=== PATIENT | male | born 1945 | race Caucasian/White ===

== ENCOUNTER 2020-01-07 12:18 | Inpatient (IN) ==
--- NOTE | 2020-01-07 13:18 | EKG Report ---
Test Performed on : 01/07/2020 12:29:33 PM Test Reason : syncope Blood Pressure : / mmHG Vent. Rate : 079 BPM Atrial Rate : 214 BPM P-R Int : 000 ms QRS Dur : 086 ms QT Int : 406 ms P-R-T Axes : 000 080 070 degrees QTc Int : 465 ms Atrial fibrillation. with a competing junctional pacemaker. with premature ventricular or aberrantly conducted complexes. Possible Anterior infarct , age undetermined Abnormal ECG When compared with ECG of 06-JUL-2017 15:29, Borderline criteria for Anterior infarct are now present Criteria for Inferior infarct are no longer present Nonspecific T wave abnormality no longer evident in Inferior leads Nonspecific T wave abnormality now evident in Anterior leads Unconfirmed Result
--- NOTE | 2020-01-07 13:24 | Diag Imaging Result Doc PS360 ---
EXAM: CHEST-PORTABLE 01/07/2020 HISTORY: syncope TECHNIQUE: AP portable at 1318 COMMENT: The inspiration is less optimal than on 04/09/2018. There is ill-defined opacity present in the left costal phrenic angle which was not present on the previous study. Otherwise considering differences in technique and inspiration there has been no significant change. IMPRESSION: Minimal atelectasis versus pneumonia left lower lobe. Electronically signed by Vern Mariscal 01/07/2020 1:22 PM
--- NOTE | 2020-01-07 13:28 | Diag Imaging Result Doc PS360 ---
EXAM: CT HEAD W/O CONTRAST HISTORY: sycope TECHNIQUE: CT head without contrast COMPARISON: None. FINDINGS: No parenchymal hemorrhage. No epidural or subdural hematoma. No subarachnoid hemorrhage. There is mild atrophy. Possible old right basal ganglia lacunar infarct. No mass identified on this noncontrasted exam. No hydrocephalus. No sinus opacification. IMPRESSION: No hemorrhage. Mild atrophy. This exam was performed using automated exposure control, adjustment of mA or kV according to patient size, and/or use of iterative reconstruction technique. Electronically signed by Bernabe Roa 01/07/2020 1:26 PM
[2020-01-07 14:12] LABS: BASO# 0.04 X1000 (0.0-0.2); BASO% 0.5 % (0.0-0.8); EOS# 0.03 X1000 (0.0-0.7); EOS% 0.4 % (0.0-10.0); HEMATOCRIT 50.6 % (42.0-52.0); HEMOGLOBIN 16.6 g/dL (14.0-18.0); IMM GRAN# 0.04 X1000 (0.0-0.04); IMM GRAN% 0.5 % (0.0-0.5); LYMPH# 0.66 X1000 (1.2-3.4); LYMPH% 7.9 % (20.5-51.1); MCH 29.9 PG (27-31); MCHC 32.8 g/dL (33-37); MCV 91.2 FL (81-99); MONO# 0.24 X1000 (0.11-0.59); MONO% 2.9 % (1.7-9.3); MPV 11.2 FL (7.4-10.4); NEUT# 7.38 X1000 (1.4-6.5); NEUT% 87.8 % (42.2-75.2); PLT 168 X1000 (130-400); RBC 5.55 XMIL (4.7-6.1); RDW 13.2 % (11.5-14.5); WBC 8.39 X1000 (4.8-10.8)
[2020-01-07 14:22] LABS: INR 1.48; PROTIME 18.2 Seconds (11.0-16.0)
[2020-01-07 14:43] LABS: LYMPHS 7 % (21-51); MONO 2 % (1-9); SEGS 91 % (42-75)
[2020-01-07 14:45] LABS: ALB/GLOB RATIO 1.1; CALCIUM 9.3 mg/dL (8.8-10.2); CREATININE 1.7 mg/dL (0.7-1.2); POTASSIUM 4.6 mmol/L (3.5-5.1); TOTAL BILIRUBIN 0.87 mg/dL (0.20-1.00); TOTAL PROTEIN 7.8 g/dL (6.3-8.3)
[2020-01-07] MEDS ORDERED: NS 1,000 ML IV ONE (15:50)
--- NOTE | 2020-01-07 15:52 | PROVIDER DOCUMENTATION ---
This chart was entered by Cyndi Lozada Scribe, acting as scribe for Nita Hargrove CRNP. HPI-Syncope/Dizziness - General Chief Complaint: Syncope Stated Complaint: Fall Time Seen by Provider: 01/07/20 13:36 Source: patient, EMS (first response) Allergies/Adverse Reactions: Patient Allergies Allergy/AdvReac Type Severity Reaction Status Date / Time No Known Allergies Allergy Verified 07/07/17 06:11 Home Medications: Home Medication List Medication Instructions Recorded Confirmed Last Taken Type Tamsulosin [Flomax] 0.4 mg PO DAILY 07/12/14 07/07/17 07/06/17 09:00 History Omeprazole [Prilosec] 40 mg PO DAILY 02/19/15 07/07/17 07/06/17 09:00 History Carvedilol [Coreg] 25 mg PO BID 03/21/17 07/07/17 07/07/17 05:10 History Digoxin [Digitek] 125 mcg PO DAILY 03/21/17 07/07/17 07/07/17 05:10 History Furosemide [Lasix] 40 mg PO DAILY 03/21/17 07/07/17 07/06/17 09:00 History Paroxetine [Paxil] 10 mg PO DAILY 03/21/17 07/07/17 07/06/17 09:00 History Sacubitril/Valsartan [Entresto 24 1 each PO BID 03/21/17 07/07/17 07/06/17 21:00 History mg-26 mg Tablet] - History of Present Illness-Syncope/Dizzy Nature of Presenting Problem: 74 yom presents to the ed with c/o 3 weeks of intermittent syncope and dizziness. he reports he has been dieting and saw pmd and was advised to come to ed Prior Episodes: reports: recent history Onset/Duration: reports: other (3 weeks) Timing: reports: intermittent Position/Activity at time of episode: reports: sitting Symptoms prior to episode: reports: lightheaded. denies: nausea/vomiting, chest pain, abdominal pain Context: reports: lost consciousness Loss of Consciousness: brief (seconds) Location of injury. (If syncope resulted in an injury.): reports: none Current Symptoms: reports: dizzy Recently Seen Here or By Another Healthcare Provider: No - Dizziness Severity in ED: reports: mild Dizziness Related Current/Associated Symptoms: reports: dizzy, syncope Any recent trauma/injury?: reports: none Modifying Factors: improves with: changing position Patient usually:: reports: walks without assistance Review of Systems - Adult - REVIEW OF SYSTEMS - ADULT Constitutional: denies: chills, fever Eyes: reports: no symptoms reported Ears, Nose, Mouth & Throat: reports: no symptoms reported Cardiovascular: denies: chest pain, palpitations Respiratory: reports: no symptoms reported Gastrointestinal: denies: abdominal pain, diarrhea, nausea, vomiting Genitourinary: reports: no symptoms reported Musculoskeletal: denies: back pain, muscle weakness, neck pain Integumentary: reports: no symptoms reported Neurological: reports: see HPI, dizziness/vertigo, syncope. denies: ataxia, headache/migraines, slurred speech Psychiatric: reports: no symptoms reported Endocrine: reports: no symptoms reported Hematologic/Lymphatic: reports: no symptoms reported Allergic/Immunologic: reports: no symptoms reported All Other Systems: Reviewed and Negative Past History - Adult - PAST MEDICAL HISTORY-ADULT Review of Records: reports: Old Records Reviewed, Nursing Assessment Review, Medications Reviewed, Social history reviewed & non-contributory. 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) - IMMUNIZATION STATUS Childhood Immunizations: See Nurse Assessment Flu Vaccine: See Nurse Assessment - FAMILY HISTORY Family History: reviewed, not pertinent - SOCIAL HISTORY Smoking: denies Substance Use: denies Living Situation: family Physical Exam-General - CONSTITUTIONAL General Appearance: appears well, alert, no apparent distress (nontoxic in appearance), obese - EYES Eyes: PERRL/EOMI, pink conjunctivae - HEAD, EARS, NOSE, MOUTH & THROAT HENMT: moist mucous membranes - NECK Neck: non-tender, full range of motion, supple, normal inspection - RESPIRATORY Respiratory: chest non-tender, lungs clear, normal breath sounds - CARDIOVASCULAR Cardiovascular: normal peripheral pulses, regular rate, rhythm - CHEST (BREASTS) Chest/Breast: deferred - GASTROINTESTINAL (ABDOMEN) Abdominal Exam: normal bowel sounds, non tender, soft - GENITOURINARY Male Genitalia: deferred Rectal Exam: deferred Hemoccult Exam: deferred - MUSCULOSKELETAL Back Exam: no CVA tenderness, no vertebral tenderness Extremity: normal range of motion, non-tender, normal gait, normal inspection - SKIN Integumentary: normal color, normal turgor, warm/dry - NEUROLOGIC Neurologic: grossly normal - PSYCHIATRIC Psych/Mental Status: normal mood/affect, normal thought content, normal thought process, oriented x 3 Progress - PLAN OF CARE/RESULTS Progress/Plan/Lab Results: Vital Signs - 8 hr 01/07/20 12:34 01/07/20 15:39 Temperature 97.6 F Pulse Rate 73 Pulse Rate [Sitting] 106 H Pulse Rate [Standing] 91 H Pulse Rate [Supine] 85 Respiratory Rate 20 Blood Pressure 126/81 Blood Pressure [Sitting] 90/57 Blood Pressure [Standing] 110/72 Blood Pressure [Supine] 123/85 O2 Sat by Pulse Oximetry 95 Laboratory Results - last 24 hr 01/07/20 01/07/20 01/07/20 13:55 13:55 13:55 WBC 8.39 RBC 5.55 Hgb 16.6 Hct 50.6 MCV 91.2 MCH 29.9 MCHC 32.8 L RDW Std Deviation 13.2 Plt Count 168 MPV 11.2 H Immature Gran % (Auto) 0.5 Neut % (Auto) 87.8 H Lymph % (Auto) 7.9 L [place] % (Auto) 2.9 Eos % (Auto) 0.4 Baso % (Auto) 0.5 Immature Gran # (Auto) 0.04 Neut # (Auto) 7.38 H Lymph # (Auto) 0.66 L [place] # (Auto) 0.24 Eos # (Auto) 0.03 Baso # (Auto) 0.04 Segmented Neutrophils 91 H Lymphocytes 7 L Monocytes 2 PT INR Sodium 135 L Potassium 4.6 Chloride 98 Carbon Dioxide 22 L Anion Gap 15 BUN 26 H Creatinine 1.7 H Estimated GFR/1.73 m2 39 BUN/Creatinine Ratio 15 Glucose 112 H Calculated Osmolality 276 Calcium 9.3 Total Bilirubin 0.87 AST 37 H ALT 30 Alkaline Phosphatase 124 H Creatine Kinase 78 Troponin T High Sens 8 Total Protein 7.8 Albumin 4.0 Globulin 3.8 Albumin/Globulin Ratio 1.1 01/07/20 13:55 WBC RBC Hgb Hct MCV MCH MCHC RDW Std Deviation Plt Count MPV Immature Gran % (Auto) Neut % (Auto) Lymph % (Auto) [place] % (Auto) Eos % (Auto) Baso % (Auto) Immature Gran # (Auto) Neut # (Auto) Lymph # (Auto) [place] # (Auto) Eos # (Auto) Baso # (Auto) Segmented Neutrophils Lymphocytes Monocytes PT 18.2 H INR 1.48 Sodium Potassium Chloride Carbon Dioxide Anion Gap BUN Creatinine Estimated GFR/1.73 m2 BUN/Creatinine Ratio Glucose Calculated Osmolality Calcium Total Bilirubin AST ALT Alkaline Phosphatase Creatine Kinase Troponin T High Sens Total Protein Albumin Globulin Albumin/Globulin Ratio Orders Category Date Time Status Nursing- Obtain EKG ONCE Care 01/07/20 12:53 Active CHEST-PORTABLE [RAD] Stat Exams 01/07/20 12:[address] HEAD W/O CONTRAST [CT] Stat Exams 01/07/20 12:47 Completed CBC WITH DIFF [HEME] Stat Lab 01/07/20 13:55 Completed CK PROFILE [SP CHEM] Stat Lab 01/07/20 13:55 Completed COMPREHENSIVE METABOLIC PANEL [CHEM] Stat Lab 01/07/20 13:55 Completed PROTIME WITH INR [COAG] Stat Lab 01/07/20 13:55 Completed TROPONIN T HIGH SENSITIVITY Stat Lab 01/07/20 13:55 Completed EKG [EKG] Stat Ther 01/07/20 12:47 Draft Result Diagrams: 01/07/20 13:55 01/07/20 13:55 - REASSESSMENT Reassessment #1 Time Reassessed: 15:42 Status: improving (pt is resting in the bed in no distress) - EKG 1 Time of EKG reading by physician:: 12:29 EKG Read and Signed by:: Tawanda Hammond EKG Interpretation (*Must complete 3 of following elements*): Abnormal Rate: 79 Rhythm: afib w/competing junctional pacemaker w/ pvc or aberrantly conducted comple [place]: normal QRS: normal CA Interval: normal ST Wave: normal Comments: possible anterior infarct, age undetrmined - XRAY 1 XRAY: Bilateral XRAY Study: Chest Impression: See EMR Report (COMMENT: The inspiration is less optimal than on 04/09/2018. There is ill-defined opacity present in the left costal phrenic angle which was not present on the previous study. Otherwise considering differences in technique and inspiration there has been no significant change. IMPRESSION: Minimal atelectasis versus pneumonia left lower lobe. Electronically signed by Vern Mariscal 01/07/2020 1:22 PM) - CT/MRI 1 CT Study: Head Impression: See EMR Report (FINDINGS: No parenchymal hemorrhage. No epidural or subdural hematoma. No subarachnoid hemorrhage. There is mild atrophy. Possible old right basal ganglia lacunar infarct. No mass identified on this noncontrasted exam. No hydrocephalus. No sinus opacification. IMPRESSION: No hemorrhage. Mild atrophy. This exam was performed using automated exposure control, adjustment of mA or kV according to patient size, and/or use of it erative reconstruction technique. Electronically signed by Bernabe Roa 01/07/2020 1:26 PM) - CONSULTS/PCP/HOSPITALIST Notification #1 *Consult/PCP/Hospitalist*: Dr. Patel Time Discussed: 15:16 Consult Disposition: Will see in ED #2 Consult: Dr. Patel Time Discussed: 15:49 Consult Disposition: Admit Departure - Departure Date of Disposition Decision: 01/07/20 Time of Disposition Decision: 15:50 DIAGNOSIS: Orthostatic hypotension Syncopal episodes Qualifiers: Syncope type: unspecified Qualified Code(s): R55 - Syncope and collapse Disposition: ADMITTED INPATIENT 09 Certified Medical Emergency: Emergent Condition: Stable Referrals and Follow-Ups: Melissa Patel MD [Primary Care Provider] - - Critical Care Note This patient required my direct & personal management of CC.: No Attestation - Physician/ DEE Attestation Patient care was provided by Advanced Practice Provider:: Yes Advanced Practice Provider:: Nita Hargrove Advanced Practice Provider documentation review:: The Mid-level provider documentation, treatment plan and medical decision making was reviewed by the ysician who agrees with all treatment and medical decision making by the MLP. The physician spent face to face time with patient:: Yes Advanced Practice Provider documentation review:: Supervising physician onsite and consulted in the evaluation and care of this patient. The physician did have a face to face encounter with the patient. This chart was documented by the indicated scribe, (Cyndi Lozada Scribe) and accurately reflects the services I performed and decisions made by , Nita Hargrove CRNP, as attested by the provider's signature.
--- NOTE | 2020-01-07 16:33 | HISTORY AND PHYSICAL ---
CHIEF COMPLAINT: "I passed out." HISTORY OF PRESENT ILLNESS: Mr. 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 This morning, he stood up and felt dizzy and walked to the front door to open the door. He passed out. He lost consciousness. He was unconscious for less than one minute. The family did not note any seizure activity such as tonic clonic movements or loss of bowel and bladder control. Prior to the event, he did not have any palpitations or feel that his heart was racing away with him. He was orthostatic in the ER. He denied any nausea, vomiting, or diarrhea. PAST MEDICAL HISTORY: As above. PAST SURGICAL HISTORY: Cholecystectomy. ALLERGIES: No known drug allergies. FAMILY HISTORY: Noncontributory. SOCIAL HISTORY: He lives with his spouse. He denies the use of tobacco, alcohol, or illicit drugs. MEDICATIONS: Xarelto 15 mg daily, digoxin 125 mcg daily, omeprazole 40 mg daily, Paxil 20 mg daily, Entresto one p.o. b.i.d., Lasix 40 mg daily, Flomax 0.4 mg daily. REVIEW OF SYSTEMS: Constitutional: He denies any recent weight gain or weight loss. HEENT: He wears glasses. He is hard of hearing. CV: No chest pain or palpitations or anginal equivalents. Pulmonary: No shortness of breath, PND, or orthopnea. GI: No reflux, dysphagia, melena, hematochezia, change in bowel habits or rectal bleeding. Endocrine: No polyuria. No polydipsia. No cold or heat intolerance. Skin: No easy bruisability. : No leakage of urine with coughing or laughing. Neurologic: No migraines or seizures. PHYSICAL EXAMINATION: GENERAL: This is an elderly, frail, 74-year-old gentleman, no apparent distress. VITAL SIGNS: He is afebrile. Blood pressure 123/80 lying down, 110/70 sitting up and 90/60 standing. HEENT: Fundi with arteriolar wall thickening. Pupils equal, round, reactive to light, extraocular eye movements intact. TMs without bullae. NECK: Supple. No masses, JVD or bruits. CARDIOVASCULAR: Irregularly irregular. LUNGS: Clear. ABDOMEN: Soft. Nontender with active bowel sounds. EXTREMITIES: Trace ankle edema. AND RECTAL: Exam is deferred. NEUROLOGIC: Nonfocal. ASSESSMENT AND PLAN: 1. Syncopal episode. I suspect that his syncopal episode is due to the orthostatic hypotension. I will hold his Toprol and Lasix and cautiously give him 1 L of normal saline over [address] him on telemetry. He has paroxysmal atrial fibrillation. His EKG showed atrial fibrillation without rapid ventricular rate. Certainly he could have had atrial fibrillation with rapid ventricular response. I will check a Cortrosyn stimulation test in the morning as he has no apparent reason other than taking Lasix for his orthostasis. 2. Chronic congestive heart failure secondary to systolic dysfunction. Clinically, he seems volume depleted. His creatinine has jumped from 1.4 to 1.7. We will cautiously give him 1 L of normal saline over 10 hours and Hep-Lock. I will hold his Lasix. 3. Factor V Leiden deficiency. We will continue Xarelto 20 mg daily. Given his comorbid conditions and clinical presentation, I believe that admission to the hospital for further evaluation is indicated. I anticipate that he will be in the hospital for at least one midnight and I will therefore place him in outpatient status with observation services. Xarelto 20 mg daily will meet the requirement for deep venous thrombosis prophylaxis. cc: Jaida Patel MD
[2020-01-07] MEDS ORDERED: SODIUM CHLORIDE 0.9% INJ PRN (17:49)
[2020-01-07] MEDS ORDERED: CORTROSYN IV ONE (17:49)
[2020-01-07] MEDS ORDERED: PHENERGAN IV PRN (17:49)
[2020-01-07] MEDS: ENTRESTO 24 MG-26 MG TABLET PO SCH (20:56)
[2020-01-07] MEDS: TYLENOL PO PRN (23:46)
[2020-01-08] MEDS: PRILOSEC PO SCH (06:03)
[2020-01-08] MEDS ORDERED: CORTROSYN IV ONE ×2 (06:15→07:15)
[2020-01-08 06:22] LABS: CALCIUM 9.1 mg/dL (8.8-10.2); CREATININE 1.5 mg/dL (0.7-1.2); POTASSIUM 4.2 mmol/L (3.5-5.1)
[2020-01-08] MEDS: LANOXIN PO SCH (08:10)
[2020-01-08] MEDS: FLOMAX PO SCH (08:10)
[2020-01-08] MEDS: PAXIL PO SCH (08:10)
[2020-01-08] MEDS: ENTRESTO 24 MG-26 MG TABLET PO SCH ×2 (08:10→20:15)
[2020-01-08] MEDS: XARELTO PO SCH (08:11)
--- NOTE | 2020-01-08 08:13 | EKG Report ---
Test Performed on : 01/08/2020 06:24:06 AM Test Reason : atrial fib Blood Pressure : / mmHG Vent. Rate : 080 BPM Atrial Rate : 076 BPM P-R Int : 000 ms QRS Dur : 086 ms QT Int : 376 ms P-R-T Axes : 000 -25 -33 degrees QTc Int : 433 ms Atrial fibrillation. Inferior infarct , age undetermined Possible Anterior infarct (cited on or before 06-JUL-2017) Abnormal ECG When compared with ECG of 07-JAN-2020 12:29, (Unconfirmed) QRS axis shifted left Inferior infarct is now present ST now depressed in Inferior leads Nonspecific T wave abnormality now evident in Inferior leads Confirmed by Manuel CASTRO, Emmanuel Kaiser ([id number]) on 01/08/2020 9:25:31 AM
[2020-01-08] MEDS ORDERED: NS 500 ML IV SCH (08:30)
--- NOTE | 2020-01-08 12:33 | ECHO REPORT ---
ORDER DATE: 01/07/2020 INDICATION: Syncope. FINDINGS: 1. The right atrium appears enlarged. Linear echodensity consistent with device leads is noted in the right heart chambers. 2. Fneg-fx-bzykydis tricuspid regurgitation. RV systolic pressure of 41. 3. Normal RV size and systolic function. 4. Mild pulmonic insufficiency. 5. Severe left atrial enlargement with a volume index of 66. 6. No mitral valve prolapse. Mild mitral regurgitation. 7. Normal LV size, end-diastolic dimension of 4.9 cm. Mild left ventricular hypertrophy with a posterior and interventricular septal wall thickness of 1.3 cm each. Normal LV systolic function. Estimated EF of 55% to 60% with normal wall motion. 8. The aortic valve opens well. It is trileaflet. Mild insufficiency. No stenosis. 9. The aorta appears normal on visualized segments. 10. No pericardial effusion seen. 11. The patient appears to be in atrial fibrillation during the study. cc: MD Jaida Layne MD
--- NOTE | 2020-01-08 12:34 | PROGRESS NOTE ---
DATE: 01/08/2020 SUBJECTIVE: Mr. Chavez was admitted to [facility] with a syncopal episode. He was orthostatic on admission. We gave him a liter of fluid overnight. He no longer tilts from a lying to sitting position. He still is orthostatic from a sitting to standing position. His blood pressure sitting was 134/82, and his blood pressure standing up was 90/60. A Cortrosyn stimulation test showed a normal Cortisol response. Renal function is improving with fluid resuscitation. His creatinine has dropped from 1.7 to 1.5. Cardiac enzymes are negative. OBJECTIVE: Temperature 97.5 degrees, pulse 91, respiratory rate 16, BP 140/86. CV irregularly irregular. Lungs clear. Abdomen soft, nontender with active bowel sounds. No hepatosplenomegaly. No abdominal bruits. ASSESSMENT AND PLAN: 1. Syncope secondary to orthostatic hypotension. He remains in atrial fibrillation, but his heart rate has been consistently less than 100. I suspect the syncopal episode is due to the orthostasis. It is unclear to me what the exact cause of the orthostasis has been. I am holding his Lasix and metoprolol. I will give him another bolus of normal saline of 500 mL over 5 hours. I wonder if there is some degree of dysautonomic dysfunction. I am going to try him on midodrine 5 mg three times a day. 2. Chronic atrial fibrillation. He remains in atrial fibrillation. Heart rate is ranging from 79 to 91. We will continue digoxin and Xarelto to reduce the risk of stroke. cc: Jaida Patel MD
[2020-01-08] MEDS: PROAMATINE PO SCH ×3 (13:30→20:15)
[2020-01-08] MEDS: TYLENOL PO PRN (23:38)
[2020-01-09] MEDS: PRILOSEC PO SCH (06:12)
[2020-01-09] MEDS: PAXIL PO SCH ×2 (07:56→08:26)
[2020-01-09] MEDS: FLOMAX PO SCH ×2 (07:56→08:25)
[2020-01-09] MEDS: LANOXIN PO SCH ×2 (07:56→08:25)
[2020-01-09] MEDS: ENTRESTO 24 MG-26 MG TABLET PO SCH ×3 (07:56→21:23)
[2020-01-09] MEDS: PROAMATINE PO SCH ×3 (07:57→21:23)
[2020-01-09] MEDS: XARELTO PO SCH ×2 (07:57→08:29)
[2020-01-09] MEDS: TOPROL XL PO SCH (08:34)
--- NOTE | 2020-01-09 09:26 | PROGRESS NOTE ---
DATE: 01/09/2020 SUBJECTIVE: Mr. Chavez continues to improve. He is no longer orthostatic. Blood pressure is trending upward on midodrine and off metoprolol. He remains in atrial fibrillation. Heart rate is trending upward. Heart rate is in the range of 110 to 115. He denies any chest pain, dyspnea, or other anginal equivalents. OBJECTIVE: Vitals: He is afebrile, pulse 118, BP 141/108. CV: Irregularly, irregular. Lungs: Clear. Abdomen: Soft, nontender, with active bowel sounds. No hepatosplenomegaly. No abdominal bruits. Extremities: Without edema. LABORATORY DATA: A Cortrosyn stimulation test was within normal limits. An echocardiogram demonstrated normal LV function and no valvular abnormalities which would account for the syncope. ASSESSMENT AND PLAN: 1. Syncope. I suspect that the syncope is due to atrial fibrillation and orthostatic hypotension. He is no longer orthostatic, but his blood pressure is trending upward. I will reduce the midodrine to 5 mg b.i.d. We will increase activity and have him walk in the halls. If he is able to walk in the halls and remains without orthostasis, we will plan on discharge home. 2. Atrial fibrillation. Blood pressure is trending upward. Heart rate is trending upward. We will continue digoxin, and I will resume low-dose metoprolol 25 mg daily and titrate upward as his blood pressure and heart rate tolerate. cc: Jaida Patel MD
[2020-01-10] MEDS: PRILOSEC PO SCH (06:06)
[2020-01-10] MEDS: PROAMATINE PO SCH (08:09)
[2020-01-10] MEDS: LANOXIN PO SCH (08:09)
[2020-01-10] MEDS: TOPROL XL PO SCH (08:09)
[2020-01-10] MEDS: FLOMAX PO SCH (08:09)
[2020-01-10] MEDS: PAXIL PO SCH (08:11)
[2020-01-10] MEDS: ENTRESTO 24 MG-26 MG TABLET PO SCH (08:11)
[2020-01-10] MEDS: XARELTO PO SCH (08:11)
[2020-01-10 09:11] VITALS: BP 123/92
[2020-01-10] MEDS ORDERED: PROAMATINE PO SCH (09:30)
== END 2020-01-10 10:03 | disposition home or self-care (01) | DRG 312 ==
LOC: ED 12:18 → 2N 12:18
PROVIDERS: ADMIT Internal Medicine; ATTEND Internal Medicine

== ENCOUNTER 2020-01-11 11:44 | Inpatient (IN) ==
[2020-01-11 12:35] LABS: BASO# 0.06 X1000 (0.0-0.2); EOS# 0.21 X1000 (0.0-0.7); EOS% 3.6 % (0.0-10.0); HEMATOCRIT 44.1 % (42.0-52.0); HEMOGLOBIN 14.6 g/dL (14.0-18.0); IMM GRAN# 0.02 X1000 (0.0-0.04); IMM GRAN% 0.3 % (0.0-0.5); LYMPH# 1.04 X1000 (1.2-3.4); LYMPH% 17.9 % (20.5-51.1); MCHC 33.1 g/dL (33-37); MCV 90.7 FL (81-99); MONO# 0.67 X1000 (0.11-0.59); MONO% 11.6 % (1.7-9.3); NEUT% 65.6 % (42.2-75.2); PLT 164 X1000 (130-400); RBC 4.86 XMIL (4.7-6.1); RDW 13.4 % (11.5-14.5)
--- NOTE | 2020-01-11 12:44 | Diag Imaging Result Doc PS360 ---
EXAM : CT HEAD/C-SPINE W/O CONTRAST HISTORY: fall, head injury TECHNIQUE: 1. CT head without contrast 2. CT cervical spine without contrast COMPARISON: None. FINDINGS: Head: No parenchymal hemorrhage. No epidural or subdural hematoma. No subarachnoid hemorrhage. There is mild atrophy. No mass identified on this noncontrasted exam. No hydrocephalus. No skull fracture. Cervical spine: There is good alignment to the cervical spine. No precervical soft tissue swelling. No subluxation. No fracture. IMPRESSION: Head: No hemorrhage. No injury. Cervical spine: No acute fracture. This exam was performed using automated exposure control, adjustment of mA or kV according to patient size, and/or use of iterative reconstruction technique. Electronically signed by Bernabe Roa 01/11/2020 12:42 PM
[2020-01-11 13:24] LABS: ALBUMIN 3.5 g/dL (3.5-5.0); CREATININE 1.3 mg/dL (0.7-1.2); POTASSIUM 4.8 mmol/L (3.5-5.1); TOTAL BILIRUBIN 1.01 mg/dL (0.20-1.00); TOTAL PROTEIN 6.9 g/dL (6.3-8.3)
[2020-01-11 13:30] LABS: URINE SOURCE CLEAN CATCH
[2020-01-11 13:53] LABS: BILIRUBIN URINE SMALL (NEGATIVE); BLOOD URINE NEGATIVE (NEGATIVE); COLOR YELLOW; GLUCOSE URINE NEGATIVE (NEGATIVE); KETONE URINE NEGATIVE (NEGATIVE); LEUKOCYTES URINE NEGATIVE (NEGATIVE); NITRITE URINE NEGATIVE (NEGATIVE); PROTEIN URINE 50 mg/dL (NEGATIVE); SP GRAVITY URINE 1.037; TURBIDITY URINE CLEAR (CLEAR); UROBILINOGEN URINE 4 mg/dL (NORMAL)
[2020-01-11 13:57] LABS: UR EPITHELIAL CELLS <10 /HPF (<10); URINE BACTERIA NEGATIVE /HPF; URINE RBC <10 /HPF (<10); URINE WBC <10 /HPF (<10)
[2020-01-11 13:58] LABS: UR AMPHETAMINES QUAL NONE DETECTED (NONE DETECT); UR BARBITUATES QUAL NONE DETECTED (NONE DETECT); UR BENZODIAZEPIN QUAL NONE DETECTED (NONE DETECT); UR CANNABINOIDS QUAL NONE DETECTED (NONE DETECT); UR COCAINE QUAL NONE DETECTED (NONE DETECT); UR METHADONE QUAL NONE DETECTED (NONE DETECT); UR OPIATES QUAL NONE DETECTED (NONE DETECT); UR OXYCODONE QUAL NONE DETECTED (NONE DETECT); UR PCP QUAL NONE DETECTED (NONE DETECT)
--- NOTE | 2020-01-11 14:05 | Diag Imaging Result Doc PS360 ---
EXAM: CHEST-PORTABLE HISTORY: syncope, hallucinations TECHNIQUE: Single view COMPARISON: 01/07/2020 FINDINGS: The lungs are well expanded. The heart is not enlarged. Left-sided pacemaker. The vessels are not distended. There are no infiltrates. No effusion identified. IMPRESSION: Negative exam. Electronically signed by Bernabe Roa 01/11/2020 2:03 PM
[2020-01-11 14:12] LABS: URINE CASTS NONE SEEN; URINE CRYSTALS NONE SEEN; URINE YEAST NONE SEEN
--- NOTE | 2020-01-11 15:42 | PROVIDER DOCUMENTATION ---
This chart was entered by Eryn Castillo Scribe, acting as scribe for Brandon Lynn MD. HPI-General Adult - General Stated Complaint: falls, head injury Time Seen by Provider: 01/11/20 11:49 Source: patient, family, EMS Allergies/Adverse Reactions: Patient Allergies Allergy/AdvReac Type Severity Reaction Status Date / Time No Known Allergies Allergy Verified 01/11/20 13:26 Home Medications: Home Medication List Medication Instructions Recorded Confirmed Last Taken Type Tamsulosin [Flomax] 0.4 mg PO DAILY 07/12/14 01/11/20 07/06/17 09:00 History Omeprazole [Prilosec] 40 mg PO DAILY 02/19/15 01/11/20 07/06/17 09:00 History Paroxetine [Paxil] 20 mg PO DAILY 03/21/17 01/11/20 07/06/17 09:00 History Sacubitril/Valsartan [Entresto 24 1 each PO BID 03/21/17 01/11/20 07/06/17 21:00 History mg-26 mg Tablet] Acetaminophen [Tylenol] 650 mg PO Q4H PRN PRN tab 01/10/20 01/11/20 Unknown Rx Metoprolol Succinate E.r. [Toprol 25 mg PO DAILY #30 tab 01/10/20 01/11/20 Unknown Rx Xl] Midodrine [Proamatine] 10 mg PO BID #60 tab 01/10/20 01/11/20 Unknown Rx Rivaroxaban [Xarelto] 15 mg PO DAILY 01/11/20 01/11/20 Unknown History - History of Present Illness -Gen Adult Nature of Presenting Problems: 74 y/o male is brought to the ED via EMS with complaint of multiple recent falls at home with last fall 0200 this am and head injury at that time. EMS states family gave a history of discharge from here 01/09 after admission for syncopal episode and again fell this morning and hit his head on a table. Family sent a typed letter with EMS stating the patient has been hallucinating since discharge from the hospital yesterday. 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 He states he believes his blood pressure is dropping suddenly upon standing with multiple syncopal episodes during which he sometimes passes out and sometimes his legs just "give out" and he has been working with his PCP, Dr. Pawel Patel to correct this. Location of Pain/Injury: reports: head Onset/Duration: reports: this morning Modifying Factors: improves with: other (standing abruptly) Associated Symptoms: reports: other (multiple falls, AMS, hallucinating, head injury) Similar Symptoms Previously?: Yes Recently seen or treated by another doctor?: Yes (discharged from here 01/10/2020) Review of Systems - Adult - REVIEW OF SYSTEMS - ADULT Constitutional: reports: no symptoms reported Eyes: reports: no symptoms reported Ears, Nose, Mouth & Throat: reports: no symptoms reported Cardiovascular: reports: no symptoms reported Respiratory: reports: no symptoms reported Gastrointestinal: reports: no symptoms reported Genitourinary: reports: no symptoms reported Musculoskeletal: reports: other (head injury). denies: back pain, neck pain Integumentary: reports: no symptoms reported Neurological: reports: loss of balance, syncope, other (AMS). denies: headache/migraines Psychiatric: reports: other (hallucination). denies: alcohol/drug dependence, depression Endocrine: reports: no symptoms reported Hematologic/Lymphatic: reports: no symptoms reported Allergic/Immunologic: reports: no symptoms reported All Other Systems: Reviewed and Negative Past History - Adult - PAST MEDICAL HISTORY-ADULT Review of Records: reports: Old Records Reviewed, Nursing Assessment Review, Medications Reviewed Major Childhood Illnesses: reports: denies history Cardiovascular: reports: HTN Other Conditions: reports: other cancer (skin) - PRIOR SURGERIES/PROCEDURES Surgical/Procedure History: reports: orthopedic (extremity) - IMMUNIZATION STATUS Childhood Immunizations: See Nurse Assessment Flu Vaccine: See Nurse Assessment - SOCIAL HISTORY Smoking: non-smoker Substance Use: none/never Living Situation: family Physical Exam-General - PHYSICAL EXAM-ADULT Initial Vital Signs Reviewed: Yes - CONSTITUTIONAL General Appearance: alert, no apparent distress, obese - EYES Eyes: PERRL/EOMI. negative: EOM palsy - HEAD, EARS, NOSE, MOUTH & THROAT HENMT: normocephalic/atraumatic, moist mucous membranes - NECK Neck: full range of motion, supple - SKIN Integumentary: normal color, warm/dry. negative: diaphoresis - NEUROLOGIC Neurologic: billet inspector II-XII nml as tested. negative: EOM palsy - PSYCHIATRIC Psych/Mental Status: normal mood/affect, normal thought content, normal thought process Progress - PLAN OF CARE/RESULTS Progress/Plan/Lab Results: Orders Category Date Time Status CT HEAD/C-SPINE W/O CONTRAST [CT] Stat Exams 01/11/20 11:45 Ordered 1404: On further questioning the patient admits to visual hallucinations for several weeks including before hospital admission which he states has not been mentioned to Dr. Patel to his knowledge. He also states he had physical therapy several weeks ago for loss of balance. Result Diagrams: 01/11/20 12:22 01/11/20 12:22 - REASSESSMENT Reassessment #1 Time Reassessed: 14:40 Status: unchanged (laboratory/imaging diagnostics unremarkable: will consult w/ Dr. Bob on behalf of Dr. Patel) - EKG 1 Time of EKG reading by physician:: 13:19 EKG Read and Signed by:: Brandon Lynn EKG Interpretation (*Must complete 3 of following elements*): Abnormal (possible anterior infarct age undetermined) Rate: 81 Rhythm: atrial fibrillation Comments: minimal voltage criteria for LVH may be normal variant - XRAY 1 XRAY Study: Chest Impression: Normal (EXAM: CHEST-PORTABLE HISTORY: syncope, hallucinations TECHNIQUE: Single view COMPARISON: 01/07/2020 FINDINGS: The lungs are well expanded. The heart is not enlarged. Left-sided pacemaker. The vessels are not distended. There are no infiltrates. No effusion identified. IMPRESSION: Negative exam. Electronically signed by Bernabe Roa 01/11/2020 2:03 PM) - CT/MRI 1 CT Study: Cervical Spine, Head Impression: Normal (EXAM : CT HEAD/C-SPINE W/O CONTRAST HISTORY: fall, head injury TECHNIQUE: 1. CT head without contrast 2. CT cervical spine without contrast COMPARISON: None. FINDINGS: Head: No parenchymal hemorrhage. No epidural or subdural hematoma. No subarachnoid hemorrhage. There is mild atrophy. No mass identified on this noncontrasted exam. No hydrocephalus. No sk ull fracture. Cervical spine: There is good alignment to the cervical spine. No precervical soft tissue swelling. No subluxation. No fracture. IMPRESSION: Head: No hemorrhage. No injury. Cervical spine: No acute fracture. This exam was performed using automated exposure control, adjustment of mA or kV according to patient size, and/or use of iterative reconstruction technique. Electronically signed by Bernabe Roa 01/11/2020 12:42 PM) - CONSULTS/PCP/HOSPITALIST Notification #1 *Consult/PCP/Hospitalist*: Dr. Bob covering for Dr. Patel Time Discussed: 14:54 Reason/Comments: hallucinations, multiple falls Consult Disposition: Admit Departure - Departure Date of Disposition Decision: 01/11/20 Time of Disposition Decision: 15:15 DIAGNOSIS: Hallucinosis, Recurrent falls, Closed head injury Disposition: ADMITTED INPATIENT 09 Certified Medical Emergency: Urgent Condition: Stable Referrals and Follow-Ups: Melissa Patel MD [Primary Care Provider] - - Critical Care Note This patient required my direct & personal management of CC.: No Attestation - Physician/ DEE Attestation Patient care was provided by Advanced Practice Provider:: No The physician spent face to face time with patient:: Yes Advanced Practice Provider documentation review:: Supervising physician onsite and consulted in the evaluation and care of this patient. The physician did have a face to face encounter with the patient. This chart was documented by the indicated scribe, (Eryn Castillo, Yony) and accurately reflects the services I performed and decisions made by me, Brandon Lynn MD, as attested by the provider's signature.
[2020-01-11] MEDS ORDERED: HALDOL IM ONE ×2 (16:41→21:00)
--- NOTE | 2020-01-11 16:55 | EKG Report ---
Test Performed on : 01/11/2020 1:19:12 PM Test Reason : syncope, hallucinations Blood Pressure : / mmHG Vent. Rate : 081 BPM Atrial Rate : 234 BPM P-R Int : 000 ms QRS Dur : 088 ms QT Int : 390 ms P-R-T Axes : 000 -25 -11 degrees QTc Int : 453 ms Atrial fibrillation. Minimal voltage criteria for LVH, may be normal variant Possible Anterior infarct (cited on or before 07-JAN-2020) Abnormal ECG When compared with ECG of 08-JAN-2020 06:24, No significant change was found Unconfirmed Result
[2020-01-11] MEDS: FLOMAX PO SCH (17:41)
[2020-01-11] MEDS: TYLENOL PO PRN (17:42)
[2020-01-11] MEDS: TOPROL XL PO SCH (20:48)
--- NOTE | 2020-01-11 21:42 | HISTORY AND PHYSICAL ---
CHIEF COMPLAINT: Hallucinations and frequent falls at home. HISTORY OF PRESENT ILLNESS: Mr. Chavez is a 74-year-old white male who was discharged yesterday from this facility after evaluation of orthostatic hypotension. He was treated with midodrine which seemed to improve his hypotension. He also has a history of factor V Leiden mutation with longstanding Xarelto therapy, chronic atrial fibrillation, gastroesophageal reflux disease, depression and BPH. He also has a history of chronic systolic congestive heart failure but his recent echo documented an ejection fraction of 55% to 60%. Earlier today I spoke with his who said he has fallen 4 times at home since arriving home yesterday. He has been seeing multiple hallucinations including talking to family such as his grandson who are not there. He also has seen ants crawling on the baseboards. He slept poorly last night, was frequently agitated, crying out and seemed unable to recognize where he was or several of his relatives. He was also reenacting things from his past last night. His daughter states that one of the recent falls he was witnessed as having vigorous moving of his extremities as if he were having a seizure. PAST MEDICAL HISTORY: Positive for the factor V Leiden, chronic atrial fibrillation and GERD as well as depression and BPH. PAST SURGICAL HISTORY: Remote history of cholecystectomy. ALLERGIES: No known drug allergies. FAMILY HISTORY: Noncontributory. SOCIAL HISTORY: He is , lives with his . He denies using alcohol or tobacco. HOME MEDICATIONS: Xarelto 15 mg daily, omeprazole 40 mg daily, Paxil 20 mg daily, Entresto / one twice a day, Flomax 0.4 mg daily, midodrine 20 mg b.i.d. REVIEW OF SYSTEMS: Constitutional: Denies recent fever, chills, night sweats or weight loss. His appetite has been good. HEENT: He wears glasses and is hard of hearing. Cardiovascular: No chest pain, palpitations or anginal equivalents. He does have a history of chronic atrial fibrillation and in 2014 had an echo with 20% ejection fraction but the more recent one last week was 55% to 60%. Pulmonary: He has occasionally had brief shortness of breath following the falling episodes but generally denies any cough, shortness of breath, sputum production, PND or orthopnea. Gastrointestinal: No reflux symptoms on PPI. He denies any difficulty swallowing, melena or bright red blood per rectum. Endocrine: No history of heat or cold intolerance or diabetes. Skin: No easy bruisability. Genitourinary: No dysuria. Neurologic: No history of migraines or seizures. PHYSICAL EXAMINATION: VITAL SIGNS: See nurse's notes. Blood pressure is 155/98, pulse is 75 per minute. GENERAL APPEARANCE: An alert, talkative, obese elderly gentleman with white hair and a white alvarez and freckles. HEENT: Pupils equal, round, reactive to light. Extraocular movements are intact. Oropharynx is benign. NECK: Supple with no adenopathy, JVD, thyromegaly or bruits. LUNGS: Clear to auscultation and percussion. CARDIAC: Irregularly irregular rhythm with controlled rate. Apical rate of 76. No murmurs or gallops are appreciated. ABDOMEN: Obese, soft and nontender with active bowel sounds. There is no guarding or rebound tenderness present. EXTREMITIES: No edema. His muscle strength seems normal. NEUROLOGIC: He is alert and talkative with clear well-enunciated speech. His speech is perhaps very slightly pressured, but there are no flight of ideas or word salad noted. Memory seems reduced. He does remember having a restless night last night and is able to describe several of his hallucinations. Cranial nerve examination is unremarkable. Do not appreciate any tremor. Motor and sensory exam is nonfocal. ASSESSMENT: 1. Hallucinations. He admits to having some hallucinations prior to his recent hospitalization. This may not have begun within the last 36 hours. Because of the restless night, I suspect he has some degree of delirium. 2. Multiple falls. He describes going to balance therapy/physical therapy last year and again this does not seem to be a terribly new problem but certainly it is worse than usual. 3. Chronic atrial fibrillation. Apparently, with rate control his left ventricular ejection fraction has improved and he may no longer need or benefit from the Entresto. 4. Factor V Leiden, on chronic Xarelto. TREATMENT PLAN: We will admit to [facility], hold his Entresto and Paxil and try low- dose Effexor for his depression. The norepinephrine releasing effect sometimes benefits orthostasis. His blood pressure today is slightly high. He will be continued on the metoprolol for rate control. We will get an EEG to evaluate for possible seizures. cc: Ron Bob MD [facility]
[2020-01-12] MEDS: PRILOSEC PO SCH (06:26)
[2020-01-12] MEDS: XARELTO PO SCH (08:48)
[2020-01-12] MEDS: TYLENOL PO PRN ×3 (08:48→22:30)
[2020-01-12] MEDS: EFFEXOR XR PO SCH (08:48)
[2020-01-12] MEDS: FLOMAX PO SCH (18:35)
[2020-01-12] MEDS: TOPROL XL PO SCH (20:46)
[2020-01-13] MEDS: PRILOSEC PO SCH ×2 (06:18→08:49)
[2020-01-13] MEDS: TYLENOL PO PRN ×4 (08:49→23:37)
[2020-01-13] MEDS: XARELTO PO SCH (08:50)
[2020-01-13] MEDS: EFFEXOR XR PO SCH (08:50)
--- NOTE | 2020-01-13 14:06 | PROGRESS NOTE ---
DATE: 01/13/2020 SUBJECTIVE: Mr. Chavez is awake and easily arousable. He is oriented to name, place, and time. He has not had any further visual or auditory hallucinations. He remains in atrial fibrillation. Heart rate is well controlled in the 70s on metoprolol. His urine drug screen was negative. CT scan of the brain was unremarkable. He had no evidence of infection, such as a UTI, pneumonia, and he did not have a white count. OBJECTIVE: Vital Signs: Temperature 97.6 degrees, pulse 74, respirations 16, BP 126/83. CV: Irregularly irregular. Lungs: Clear. Abdomen: Soft, nontender, with active bowel sounds. ASSESSMENT AND PLAN: 1. Chronic atrial fibrillation. He remains in atrial fibrillation. We will continue Xarelto 15 mg daily to reduce the risk of stroke, and metoprolol 25 mg at bedtime for rate control. 2. Acute delirium. We have simplified his medications and have stopped several medicines. Dr. Bob switched him to Effexor. He is back to his baseline neurologically. 3. General debility. We will continue physical therapy. I believe that he potentially would benefit from short-term rehabilitation. cc: MD Ron Pelayo MD
[2020-01-13] MEDS: FLOMAX PO SCH (18:14)
[2020-01-13] MEDS: TOPROL XL PO SCH ×2 (19:58→23:10)
[2020-01-14] MEDS: PRILOSEC PO SCH (06:11)
[2020-01-14] MEDS: EFFEXOR XR PO SCH (09:10)
[2020-01-14] MEDS: XARELTO PO SCH (09:10)
[2020-01-14] MEDS: TYLENOL PO PRN ×2 (09:10→20:18)
--- NOTE | 2020-01-14 10:18 | Diag Imaging Result Doc PS360 ---
EXAM: LUMBAR SPINE HISTORY: sciatica TECHNIQUE: AP and lateral with obliques, six views COMPARISON: None. FINDINGS: Over 50% compression fracture to the T11 vertebra. Approximately 33% compression fracture to the L4 vertebra. No subluxation. Moderate bone spurring throughout the lumbar spine. An inferior vena cava filter overlies the right side of the lumbar spine. IMPRESSION: Lower thoracic and lumbar compression fractures Electronically signed by Bernabe Roa 01/14/2020 10:15 AM
[2020-01-14] MEDS: FORTICAL NAS SCH (12:25)
[2020-01-14] MEDS: PROAMATINE PO SCH ×2 (12:25→17:07)
--- NOTE | 2020-01-14 12:30 | PROGRESS NOTE ---
DATE: 01/14/2020 SUBJECTIVE: Mr. Chavez is still orthostatic. His blood pressure lying down was 151/96, 147/95 sitting and 116/60 standing. He has been with complaint of low back pain. An x-ray of the LS spine demonstrated a mild compression fracture at L4. He remains in atrial fibrillation, heart rate is well controlled in the range of 80 to 93 on metoprolol. He denies any chest pain, palpitations, or anginal equivalents. OBJECTIVE: Vital signs: Temperature 97.7 degrees, pulse 80, respirations 19, blood pressure 142/88. Cardiovascular: Irregularly irregular. Lungs clear. Abdomen soft, nontender with active bowel sounds. ASSESSMENT AND PLAN: 1. Orthostatic hypotension. He is still mildly orthostatic off all blood pressure medicines with the exception of low-dose metoprolol. We will resume the midodrine. 2. Delirium. His delirium has resolved. He has had no evidence of infection. We simplified his medicines. He is awake and easily arousable. He is oriented to name, place, and time. He has had no further hallucinations. 3. Compression fracture at L4. Serum calcium is normal. I will check a serum protein electrophoresis. I will begin Miacalcin nasal spray. cc: MD Ron Pelayo MD
[2020-01-14] MEDS: FLOMAX PO SCH (17:07)
[2020-01-14] MEDS: TOPROL XL PO SCH (20:18)
--- NOTE | 2020-01-14 21:56 | EEG REPORT ---
DATE: 01/11/2020 REFERRING PHYSICIAN: Ron Bob MD CALL CENTER TEAM LEADER: Larissa Fuller. BACKGROUND INFORMATION/TECHNIQUE: This is a digitally recorded portable routine EEG with video. HISTORY: A 74-year-old male with 4 recent falls and with hallucinations and confusion. One fall was associated with movements of his extremities with question of seizure. He was recently released from this facility after evaluation of orthostatic hypotension, treated with midodrine, which seemed to help. EEG is ordered to detect evidence of seizure. Medications include Xarelto, Effexor, Toprol and Flomax. EEG FINDINGS: A moderately well-formed 8.5 to 9 Hz posterior dominant alpha rhythm is seen symmetrically in the occipital regions. The background at maximal alertness consists of mixed alpha and beta range frequencies with rare theta. No definite persistent focal slowing. No epileptiform discharges. No seizures. Hyperventilation is not performed. Photic stimulation does not alter the record significantly. The patient becomes drowsy often and enters into stage II sleep. The EKG demonstrates irregular intervals. IMPRESSION AND CLINICAL CORRELATION: Borderline abnormal routine EEG due to very mild diffuse slowing suggestive of a very mild encephalopathy versus drowsiness. No epileptiform discharges or seizures seen on the current study. This does not rule out an underlying seizure disorder. There is irregularity of the intervals on the EKG lead. cc: MD Ron Olivo MD
[2020-01-15] MEDS: TYLENOL PO PRN (01:18)
[2020-01-15] MEDS: PRILOSEC PO SCH (06:35)
[2020-01-15] MEDS: XARELTO PO SCH (08:01)
[2020-01-15] MEDS: PROAMATINE PO SCH (08:01)
[2020-01-15] MEDS: FORTICAL NAS SCH (08:01)
[2020-01-15] MEDS: EFFEXOR XR PO SCH (08:01)
[2020-01-15 08:09] VITALS: BP 140/97
--- NOTE | 2020-01-15 16:17 | DISCHARGE SUMMARY ---
ADMISSION DATE: 01/11/2020 DISCHARGE DATE: 01/15/2020 DISCHARGE DIAGNOSES: 1. Acute delirium. 2. Orthostatic hypotension secondary to dysautonomia. 3. Recurrent falls. 4. Cerebellar ataxia. 5. Benign prostatic hypertrophy with obstructive symptoms. 6. Chronic congestive heart failure. 7. Persistent atrial fibrillation. 8. Depression. 9. Acute compression fracture, L4. 10. cerebellar ataxia DISCHARGE INSTRUCTIONS: 1. Return to clinic in 1 week to see me, Dr. Pawel Patel. 2. Activity as tolerated. 3. Healthy heart diet. MEDICATIONS: 1. Calcitonin 1 spray to the nose daily and alternate sides. 2. Effexor XR 37.5 mg daily. 3. Flomax 0.4 mg daily. 4. Omeprazole 40 mg daily. 5. Metoprolol ER 25 mg daily. 6. Midodrine 10 mg b.i.d. DISCHARGE PHYSICAL EXAMINATION: General: This is a well-developed, well- nourished, 74-year-old gentleman. No apparent distress. Vital signs: He is afebrile. Vital signs are stable. CV: Irregularly irregular. Lungs: Clear. Abdomen: Soft, nontender, with active bowel sounds. No hepatosplenomegaly. No abdominal bruits.NEURO finger to nose and heel to toe abnormal Mr. Antonio Chavez was admitted to [facility] with acute delirium. His initial CT scan of the brain demonstrated chronic white matter changes. There was no evidence of any infection. Dr. Bob simplified some of his medications. He switched him from Paxil to venlafaxine. The delirium resolved spontaneously. He remained awake and easily arousable. He was oriented to name, place, and time. He had no further auditory or visual hallucinations during his hospitalization. He was with complaint of low back pain. An x-ray of the LS spine demonstrated compression fracture at L4. Serum calcium level was normal. Serum protein electrophoresis is pending. We treated him with Fortical 1 spray to the nostril daily and alternate sides. He has a history of chronic atrial fibrillation. He remains in atrial fibrillation. Heart rate is well controlled in the range of 65 to 80 on metoprolol. He has had no bleeding complications secondary to the Xarelto. He does have orthostatic hypotension secondary to dysautonomia. Previous Cortrosyn stimulation test was negative. Dr. Bob held his Entresto. We increased the midodrine, and over time his orthostasis resolved. Having reached maximum hospital benefit, the patient was discharged in stable condition. cc: MD Ron Pelayo MD MTDD
== END 2020-01-15 12:01 | disposition home health service (06) | DRG 948 ==
LOC: ED 11:44 → 3N 16:19
PROVIDERS: ADMIT Internal Medicine; ATTEND Internal Medicine